=== PATIENT | female | born 1975 | race Caucasian/White ===

== ENCOUNTER 2021-02-14 20:00 | Outpatient (CLI) | payer BC, SELFPAY | END 2021-02-14 20:01 | disposition home or self-care (01) | LOC: SLEEP 02-15 08:46 | PROVIDERS: Family Provider Family Medicine; Visit Provider Family Medicine | DX: G47.33 Obstructive sleep apnea (adult) (pediatric) (principal) | CPT/HCPCS: 95810 ==

== ENCOUNTER 2022-11-20 08:22 | Outpatient (CLI) | payer OTHER, SELFPAY ==
--- NOTE | 2022-11-20 08:47 | US_ITS ---
WS: [id number] ULTRASOUND GUIDED BIOPSY LEFT AXILLA. HISTORY: LUMP OF AXILLARY TAIL OF LEFT BREAST Procedure, risks, and complications are explained to the patient. Consent was obtained. Skin is clean sed with ChloraPrep and anesthetized with 1% buffered lidocaine. Previously described axillary lymph node is identified. This lymph node is targeted for biopsy. Multi ple core biopsies are performed with a 14-gauge achieve needle. Biopsies are placed on a damp Telfa p ad as requested by pathology and placed in a sterile container. US/US biopsy lymph node breast/ax IMPRESSION: 1. Uncomplicated biopsy LEFT axillary lymph node. Pathology: No evidence of necrosis, granulomatous infection or metastatic disea se. Flow site symmetric analysis is pending. Morphologically the lymph node is benign and reactive. Flow cytometry final results are pending. Recommendation: No additional imaging necessary. If flow cytometry comes back a s normal no additional evaluation is necessary lymph node. Recommend annual scr eening mammography.
[2022-11-21 14:30] LABS: Lymphoma Profile (BBPL) See Report
== END 2022-11-20 08:23 | disposition home or self-care (01) ==
PROVIDERS: Visit Provider Registered Nurse
DX: N63.32 Unspecified lump in axillary tail of the left breast (principal); N62 Hypertrophy of breast
CPT/HCPCS: 38505; 76942; 88184; 88185; 88305